=== PATIENT | male | born 1955 | race Caucasian/White ===

== ENCOUNTER → 2017-06-06 | Outpatient (CLI) | payer BC ==
[~2017-06-06] MED LIST: ALLO100T PO; ASPI-183 PO; CIPR500T4 PO; HYDR-3583 PO; LISI-360 PO; LISI-519 PO; METR-1 PO; OMEP20TA93 PO; WALKER/ADULT/FO1 MIS; XARE10TA PO
== END ==
LOC: CPRE 09:28
PROVIDERS: ATTEND Orthopaedic Surgery Orthopaedic Trauma
DX: Z01.810 Encounter for preprocedural cardiovascular examination (principal); Z01.811 Encounter for preprocedural respiratory examination; Z01.812 Encounter for preprocedural laboratory examination; Z01.818 Encounter for other preprocedural examination; Z13.9 Encounter for screening, unspecified; Z96.60 Presence of unspecified orthopedic joint implant; Z79.01 Long term (current) use of anticoagulants; M79.609 Pain in unspecified limb

== ENCOUNTER 2017-06-10 05:07 | Inpatient (IN) | payer BC ==
[~2017-06-10] VITALS: Ht 185.4 cm; Wt 93.0 kg
[~2017-06-10 05:07] MED LIST changes: -ASPI-183 PO; -CIPR500T4 PO; -HYDR-3583 PO; -LISI-360 PO; -METR-1 PO; -WALKER/ADULT/FO1 MIS; -XARE10TA PO
[2017-06-10] MEDS ORDERED: SODIUM CHLOR 0.9% 250 ML INJ 250 ML ONE (05:43)
[2017-06-10] MEDS ORDERED: VANCOMYCIN HCL 1000 MG VIAL ONE (05:43)
[2017-06-10] MEDS ORDERED: METOPROLOL TARTRATE 25 MG TAB PO PRN (06:00)
[2017-06-10] MEDS ORDERED: CHLORHEXIDINE GLUCONATE 2 % 1 PACK (2 CLOTHS) TOPICAL PRN (06:00)
[2017-06-10] MEDS ORDERED: LACTATED RINGER'S 1000 ML IV PRN (06:00)
[2017-06-10] MEDS ORDERED: POVIDONE IODINE 5% (ANTISEPSIS KIT) 4 APPLICATIONS EACH NARE PRN (06:00)
[2017-06-10] MEDS ORDERED: CHLORHEXIDINE GLUCONATE 4% SOLN 120 ML BTL TOPICAL SCH (06:00)
[2017-06-10] MEDS ORDERED: VANCOMYCIN 1000 MG/NS 250 ML (for <70 kg) IV SCH ×2 (06:00)
[2017-06-10] MEDS ORDERED: GENTAMICIN SULFATE 80 MG/2 ML VIAL ONE (06:05)
[2017-06-10] MEDS ORDERED: ACETAMINOPHEN 1000 MG/100 ML 100 ML IV ONE (06:19)
[2017-06-10] MEDS ORDERED: ceFAZolin 2 GM PREMIX 0 ML ONE (06:28)
[2017-06-10] MEDS ORDERED: EXPAREL PERI-ARTICULAR INJECTION (TOTAL VOL. 60 ML) P-ARTICULR SCH ×2 (07:00)
[2017-06-10] MEDS ORDERED: SODIUM CHLORIDE 0.9% IV SCH (07:00)
[2017-06-10] MEDS ORDERED: TRANEXAMIC ACID IV SCH (07:00)
[2017-06-10] MEDS ORDERED: CLINDAMYCIN PHOS 600 MG/4 ML VIAL ONE (07:02)
[2017-06-10] MEDS ORDERED: ASPI-183 PO (08:19)
[2017-06-10] MEDS ORDERED: XARE10TA PO (08:19)
[2017-06-10] MEDS ORDERED: HYDR-3583 PO (08:19)
[2017-06-10] MEDS ORDERED: WALKER/ADULT/FO1 MIS (08:19)
--- NOTE | 2017-06-10 08:19 | HHI.FF ---
Face to Face Verification Diagnosis: (1) Status post total replacement of left hip Physical Therapy Gait training Hip: Protocol: Left Left LE Weight Bearing: WB as tolerated Nursing Dressing Changes: Do not change dressing I have seen patient Alex Pickard on 06/10/17. My clinical findings support the need for the requested home health care services because: Ltd mobility - disease progression I certify that my clinical findings support that this patient is homebound because: Post-op weakness Brandon Rinaldi/Retail Service Specialist PA Jun 10, 2017 08:19
--- NOTE | 2017-06-10 09:13 | PD.OP ---
cc: Franklin Beauchamp MD Operative Report Date of Surgery: Jun 10, 2017 Preoperative Diagnosis: Severe left hip osteoarthritis Postoperative Diagnosis: Procedure: Left total hip arthroplasty via anterior approach Anesthesia: Gen. Surgeon: Franklin Beauchamp Retirement Specialist(s): CRYSTAL Dillon PA-C The surgical procedure was assisted by my physician statistical assistant. My P.A. presence was necessary throughout this case for the manipulation and positioning of the surgical extremity. My P.A. was assisting me throughout the duration of this procedure. The skill set of a physician statistical assistant was medically necessary to complete this procedure. During the surgical case the medical or surgical instrument maker was working at the back table and the physician statistical assistant was directly assisting me. Operation and Findings: PLAN OF ACTIVITY Weight bear as tolerated. DRAINS: 7-mm BERNARD drain. IMPLANTS USED DePuy Corail size [12 high offset] stem with a size [54] [place] Gription cup, [54/36] Altrx poly liner, and a [36+5] ceramic Biolox ceramic head. DETAILS OF PROCEDURE: This patient has a long history of hip pain. Patient was found to have severe osteoarthritis. The patient had radiographic evidence of joint space narrowing with [id number] arthritis and osteophytes around the acetabulum as well as the femoral head. There was also some cystic changes. The patient failed conservative treatment with pain medications, anti-inflammatories, physical therapy, assistive devices including a cane, as well as therapeutic injection of the hip. Patient's hip arthritis was limiting his ability to ambulate and perform activities of daily living. The patient wished to proceed with surgery and informed consent was obtained. Operative site was marked. I discussed both posterior approach and anterior approach with the patient and decision was made for anterior approach. Patient was brought to OR and placed on OR table. IV sedation and general anesthesia was administered by anesthesiologist. Patient positioned on a Bindu table and was given IV antibiotics. Time-out procedure was performed. The hip and thigh were prepped with alcohol followed by Hibiclens. The thigh was draped in the usual sterile fashion. Clean Air Suite was used for this procedure. The procedure began with a 5-inch incision over the anterolateral thigh. Subcutaneous tissue was dissected with Bovie. The fascia over the tensa fasciae latae was incised. Care was taken to avoid injury to the lateral femoral cutaneous nerve. The tensor muscle was retracted laterally. Sartorius was retracted medially. Retractors were now placed. The reflected head of the rectus is now elevated. A capsulotomy was performed over the anterior head capsule. Sutures were placed to help retract the capsule. At this point the femoral head and neck were identified. With soft tissue protected, oscillating saw was used to make a cut through the femoral neck, the femoral head was now removed. At this point attention was turned to preparation of the acetabulum. The labrum was excised. The acetabulum was sequentially reamed up to size [54]. A [place] cup was now placed. Fluoroscopy was used to aid in identification of appropriate version. Cup was fully impacted and found to have excellent fit. Hole eliminator was now placed. The liner was now impacted into the cup. At this point the hip was externally rotated. A hook was placed around the proximal femur. The capsule was released off the lateral and medial femur. The hip was now extended and adducted. Retractors were placed around the proximal femur to allow for exposure. A box osteotome was used to remove the lateral cortex of the femoral neck. A broach was used to help lateralize the prosthesis. Canal finder was used to create a path down the canal. Next, the canal was sequentially broached up to size [12]. This was found to be an excellent fit. Calcar planer was placed. A standard head with high offset neck was placed, and the hip was reduced. The hip was found to have excellent stability with good range of motion. The leg lengths were measured under fluoroscopy and found to be equal compared to preoperatively. Trial broach was removed. The Corail stem was opened. Stem was fully impacted into the proximal femur in appropriate version. The femoral head was placed. The hip was again reduced. Fluoroscopy confirmed excellent alignment of prosthesis. The wound was thoroughly irrigated and capsule was closed with #1 Vicryl. The fascia over the tensor fasciae muscle was closed with #1 Vicryl, subcutaneous tissue was closed with 3-0 Vicryl and the skin was closed with khari and Dermabond skin closure. The capsule layers, muscle, and subcutaneous tissue were injected with a mixture of saline and bupivicaine. Dressings were applied. The patient was transferred to Recovery Room in stable condition. Franklin Beauchamp MD Jun 10, 2017 09:13
[2017-06-10] MEDS ORDERED: ceFAZolin 2 GM PREMIX 50 ML IV SCH (09:15)
[2017-06-10] MEDS ORDERED: ACETAMINOPHEN/HYDROcodone 325 MG/7.5 MG TAB PO PRN (09:30)
[2017-06-10] MEDS ORDERED: ONDANSETRON HCL 4 MG/2 ML VIAL IVP PRN (09:30)
[2017-06-10] MEDS: LACTATED RINGER'S 1000 ML INJ 1,000 ML IV SCH ×2 (09:30→20:10)
[2017-06-10] MEDS ORDERED: NALOXONE HCL 0.4 MG/ML AMP IV PUSH PRN (09:45)
[2017-06-10] MEDS ORDERED: *morphine SULFATE 8 MG/ML PERIprocedure ONLY ONE ×2 (09:52→10:27)
[2017-06-10] MEDS ORDERED: Post-op Orders (for Pharmacy) MISC XX ONE (10:00)
[2017-06-10] MEDS ORDERED: TRANEXAMIC ACID INJ 1,000 MG in SODIUM CHLORIDE 0.9% INJ 100 ML IV ONE (10:00)
[2017-06-10] MEDS: KETOROLAC TROMETHAMINE 30 MG/ML (IVP) VIAL IV PUSH SCH ×2 (10:00→20:10)
[2017-06-10] MEDS ORDERED: DO NOT ADM ANY ANTICOAGULANT DRUGS PRN (11:00)
--- NOTE | 2017-06-10 11:26 | RADRPT ---
EXAM DATE/TIME: 06/10/2017 10:12 [facility] COMPARISON: No previous studies available for comparison. INDICATIONS : Post-op left hip. MEDICAL HISTORY : None. SURGICAL HISTORY : H/O Right hip surgery. ENCOUNTER: Initial ACUITY: 1 day PAIN SCORE: 7/10 LOCATION: Left Hip. FINDINGS: Examination of the hip demonstrates total hip arthroplasty in satisfactory position. The alignment is anatomic. CONCLUSION: Post surgical changes as above. Frederick Montez MD on June 10, 2017 at 11:23 Board Certified Radiologist. This report was verified electronically.
[2017-06-10 11:56] VITALS: BP 96/63; PULSE 76; RESP 17; TEMP 95.5; O2SAT 96
[2017-06-10] MEDS: MORPHINE SULFATE 4 MG/ML INJ IV PUSH PRN ×3 (13:00→20:11)
--- NOTE | 2017-06-10 13:49 | RADRPT ---
EXAM DATE/TIME: 06/10/2017 07:27 [facility] COMPARISON: No previous studies available for comparison. INDICATIONS : Left total hip arthroplasty. MEDICAL HISTORY : Unobtainable SURGICAL HISTORY : Unobtainable. ENCOUNTER: Initial ACUITY: 1 day PAIN SCORE: Non-responsive. LOCATION: Left hip FINDINGS: The patient is status post a total hip arthroplasty with a bipolar prosthesis. Prosthesis is well-sea joanne. Alignment is anatomic. A fracture is not appreciated. CONCLUSION: Anatomic alignment. Keegan Echevarria MD FACR on June 10, 2017 at 13:47 Board Certified Radiologist. This report was verified electronically.
[2017-06-10] MEDS: ACETAMINOPHEN/HYDROcodone 325 MG/10 MG TAB PO PRN ×2 (14:59→18:30)
[2017-06-10 16:00] VITALS: BP 111/63; PULSE 84; RESP 17; TEMP 95.9; O2SAT 99
[2017-06-10] MEDS: VANCOMYCIN INJ 1,000 MG in SODIUM CHLOR 0.9% 250 ML INJ 250 ML IV SCH (18:31)
[2017-06-10 20:00] VITALS: BP 101/66; PULSE 84; RESP 20; TEMP 97.3; O2SAT 100
[2017-06-11] VITALS: BP 111/65; PULSE 82; RESP 20; TEMP 97; O2SAT 99
[2017-06-11] MEDS: ACETAMINOPHEN/HYDROcodone 325 MG/10 MG TAB PO PRN ×4 (01:53→12:00)
[2017-06-11 04:00] VITALS: BP 102/62; PULSE 74; RESP 20; TEMP 97; O2SAT 98
[2017-06-11] MEDS: VANCOMYCIN INJ 1,000 MG in SODIUM CHLOR 0.9% 250 ML INJ 250 ML IV SCH (05:02)
--- NOTE | 2017-06-11 07:08 | PD.ORT.PN ---
Subjective Subjective Remarks Doing well. Mild drainage overnight. Pain controlled Objective Vitals Vital Signs Date Time Temp Pulse Resp B/P (MAP) Pulse Ox O2 Delivery O2 Flow Rate FiO2 06/11/17 04:00 97.0 74 20 102/62 (75) 98 06/11/17 00:00 97.0 82 20 111/65 (80) 99 06/10/17 20:09 100 Nasal Cannula 2.00 06/10/17 20:00 97.3 84 20 101/66 (78) 100 06/10/17 16:00 95.9 84 17 111/63 (79) 99 06/10/17 11:56 95.5 76 17 96/63 (74) 96 06/10/17 10:45 98.0 73 12 106/62 (77) 98 Nasal Cannula 2 06/10/17 10:30 67 12 105/58 (74) 97 06/10/17 10:15 76 20 106/53 (70) 98 06/10/17 10:00 72 13 99/57 (71) 100 06/10/17 09:45 74 12 106/56 (73) 97 Nasal Cannula 2 06/10/17 09:39 97.8 83 13 105/51 (69) 100 Simple Mask 6 I/O 06/10/17 06/10/17 06/10/17 06/11/17 06/11/17 06/11/17 07:00 15:00 23:00 07:00 15:00 23:00 Intake Total 1780 ml 400 ml 500 ml Output Total 590 ml 420 ml 800 ml Balance 1190 ml -20 ml -300 ml Intake Oral 480 ml 400 ml 500 ml Other 1300 ml Output Urine Total 200 ml 300 ml 800 ml Drainage Total 140 ml 120 ml Estimated Blood Loss 250 ml # Voids 1 # Bowel Movements 0 0 0 Imaging Last 24 hours Impressions Hip and Pelvis X-Ray 06/10/17 0908 Signed Impressions: Service Date/Time: Saturday, June 10, 2017 10:12 - CONCLUSION: Post surgical changes as above. Frederick Montez MD Objective Remarks Left lower extremity: Clean dry dressings intact. Drain in place. Compartments soft. Mild tenderness with internal/external rotation of hip. Distally intact sensation good capillary refills. Assessment & Plan Assessment and Plan Left total hip arthroplasty anterior approach POD 1 Weightbearing as tolerated physical therapy twice a day DC drain today with dry dressings over incision. Make sure tape from [place] is not in contact with tape over incision. Xeroform over drain site. Lovenox Incentive spirometry DC to home today if doing well with home health care Follow-up Dr. Beauchamp or PA in 2 weeks Pavan Olvera Jr. Jun 11, 2017 07:08
[2017-06-11 07:36] LABS: HEMATOCRIT 35.4 % (39.0-51.0); REVIEW FLAG FINAL
[2017-06-11 08:00] VITALS: BP 100/63; PULSE 75; RESP 18; TEMP 96.1; O2SAT 98
[2017-06-11] MEDS: KETOROLAC TROMETHAMINE 30 MG/ML (IVP) VIAL IV PUSH SCH (08:25)
[2017-06-11] MEDS ORDERED: ENOXAPARIN SODIUM 40 MG/0.4 ML SYRINGE SQ SCH (08:30)
[2017-06-11] MEDS ORDERED: ALLOPURINOL 100 MG TAB PO SCH (09:00)
[2017-06-11] MEDS ORDERED: LISINOPRIL 5 MG TAB PO SCH (09:00)
[2017-06-11] MEDS ORDERED: PANTOPRAZOLE SOD 20 MG DELAYED RELEASE TAB PO SCH (09:00)
[2017-06-11 12:00] VITALS: BP 108/74; PULSE 77; RESP 17; TEMP 96.4; O2SAT 98
[2017-06-11] MEDS ORDERED: DOCUSATE SODIUM 100 MG CAP PO SCH (21:00)
--- NOTE | 2017-06-12 07:30 | HHI.DS ---
Discharge Summary Admission Date Jun 10, 2017 at 05:07 Discharge Date: Jun 11, 2017 Admitting Diagnosis Left hip osteoarthritis Diagnosis: (1) Status post total replacement of left hip Diagnosis: Principal ICD Codes: Z96.642 - Presence of left artificial hip joint Procedures Left anterior total hip arthroplasty CBC/BMP: 06/11/17 0715 Significant Findings Laboratory Tests Test 06/11/17 07:15 Hemoglobin 12.1 GM/DL (13.0-17.0) Hematocrit 35.4 % (39.0-51.0) PE at Discharge Left lower extremity: Clean dry dressings intact. Drain in place. Compartments soft. Mild tenderness with internal/external rotation of hip. Distally intact sensation good capillary refills. Hospital Course Patient admitted from outpatient basis for elective left total hip arthroplasty. He's been suffering from arthritis the left hip for significant amount of time. He has failed conservative treatment which included anti- inflammatory therapy, activity modification and intra-articular steroid injections. He tolerated procedure well and was admitted to [address] [place] [address]. He was out of bed on postoperative day 0 and ambulating well with therapy using a walker. By postoperative day 1, his pain was well-controlled, he was hemodynamically stable, he was ambulating with a walker and fit for discharge home with home healthcare. He'll be discharged home today in follow-up in the office of Dr. Beauchamp or his PA in 2 weeks Pt Condition on Discharge: Good Discharge Disposition: Disch w/ Home Health Serv Discharge Instructions Diet Instructions: As Tolerated, No Restrictions Activities You Can Perform: Weight Bearing as Lucian Follow up Referrals: Orthopedics - 2 Weeks @ [facility] with Franklin Beauchamp MD SNF/[facility]/ with [facility] New Medications: Aspirin (Aspirin) 325 Mg Tab 325 MG PO DAILY for prevent blood clots, #14 TAB 0 Refills Hydrocodone-Acetaminophen (Hydrocodone-Acetaminophen) 10-325 mg Tab 1 TAB PO Q4H PRN for PAIN, #60 TAB 0 Refills Rivaroxaban (Xarelto) 10 Mg Tab 10 MG PO DAILY for Blood Clot Prevention for 14 Days, #14 TAB 0 Refills Walker/Adult/Folding (Walker/Adult/Folding) 1 Mis Mis EA .ROUTE DIRECTED, #1 0 Refills Continued Medications: Allopurinol (Allopurinol) 100 Mg Tab 100 MG PO DAILY for Gout, #30 TAB 0 Refills Lisinopril (Lisinopril) 5 Mg Tab 5 MG PO DAILY for Blood Pressure Management, #30 TAB 0 Refills Omeprazole (Omeprazole) 20 Mg Tab 20 MG PO DAILY, #30 TAB 0 Refills Brandon Rinaldi/First Narendra OLVERA Jun 12, 2017 07:30
== END 2017-06-11 12:15 | disposition home health service (06) | DRG 470 ==
LOC: HSDI 05:07 → N06B 11:15
PROVIDERS: ADMIT Orthopaedic Surgery Orthopaedic Trauma; ATTEND Orthopaedic Surgery Orthopaedic Trauma
PROC: 0SRB049 Replacement of Left Hip Joint with Ceramic on Polyethylene Synthetic Substitute, Cemented, Open Approach (ICD-10-PCS; principal; 2017-06-10 06:46)
DX: M16.12 Unilateral primary osteoarthritis, left hip (principal); I10 Essential (primary) hypertension; K21.9 Gastro-esophageal reflux disease without esophagitis; F10.10 Alcohol abuse, uncomplicated; Z88.0 Allergy status to penicillin
CPT/HCPCS: 73501; 73502; 76000; 85014; 85018; 86850; 86900; 86901; C9290; J0131; J0690; J1580; J1650; J1885; J2270; J3370; J7050; J7120; L1830